=== PATIENT | female | born 1965 | race American Indian/Alaskan Native ===

== ENCOUNTER 2017-01-25 03:08 | Emergency (ER) | payer MEDICARE ==
[2017-01-25 03:10] VITALS: BMI 29.9
[2017-01-25 03:22] VITALS: TEMP 98.7; O2SAT 99
--- NOTE | 2017-01-25 03:46 | ED PDOC ---
Arrival/HPI <Paul Rizvi - Last Filed: 01/25/17 04:05> - General Historian: Patient - History of Present Illness Time/Duration: 24 hours Symptom Onset: Sudden Symptom Course: Unchanged Quality: Pressure, Cramping, Throbbing Severity Level: Moderate Context: Sitting <Claudine Giraldo - Last Filed: 01/25/17 04:34> - General Chief Complaint: Back Pain Time Seen by Provider: 01/25/17 03:34 - History of Present Illness Narrative History of Present Illness (Text): 01/25/17 03:39 51F w/PMh sig for hypertension, depression evaluated for Left gluteal pain x 1 day. Pt reports pain onset after work yesterday, pt noted inability to sit down. Pain is intermittent, sharp, non radiating, worsened by pressure/sitting/ certain movements; alleviated by keeping pressure off area. Denies trauma to area, injury to other parts of her body, N/V/F/C, shortness of breath, chest pain, ab pain, decreased ROM, other complaints. 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 PSH: Left thigh skin graft All: Seasonal SH:Denies tobacco, ETOH or illicit drug use; loads milk crates PMD: Tia (Claudine Giraldo) Modifying Factors (Text): 01/25/17 03:39 sitting/pressure = worse (Claudine Giraldo) Associated Symptoms (Text): 01/25/17 03:39 None (Claudine Giraldo) Past Medical History - Provider Review Nursing Documentation Reviewed: Yes - Cardiac Hx Cardiac Disorders: Yes Hx Heart Murmur: Yes Hx Hypertension: Yes - Pulmonary Hx Respiratory Disorders: No - Neurological Hx Neurological Disorder: No - HEENT Hx HEENT Disorder: No - Renal Hx Renal Disorder: No - Endocrine/Metabolic Hx Endocrine Disorders: No - Hematological/Oncological Hx Blood Disorders: No - Integumentary Hx Dermatological Disorder: No - Musculoskeletal/Rheumatological Hx Musculoskeletal Disorders: No - Gastrointestinal Hx Gastrointestinal Disorders: No - Genitourinary/Gynecological Hx Genitourinary Disorders: No - Psychiatric Hx Psychophysiologic Disorder: Yes Hx Anxiety: Yes Hx Depression: Yes Hx Substance Use: No - Surgical History Other/Comment: skin graft to legs - Suicidal Assessment Feels Threatened In Home Enviroment: No <Claudine Giraldo - Last Filed: 01/25/17 04:34> Family/Social History - Physician Review Nursing Documentation Reviewed: Yes Family/Social History: No Known Family HX Smoking Status: Former Smoker Hx Alcohol Use: No Hx Substance Use: No <Mark Giraldone - Last Filed: 01/25/17 04:34> Allergies/Home Meds <Belkys,Paul - Last Filed: 01/25/17 04:05> <GiraldoMarkClaudine - Last Filed: 01/25/17 04:34> Allergies/Adverse Reactions: Allergies No Known Allergies Allergy (Verified 09/02/15 11:34) Home Medications: Home Meds Medication Instructions Recorded Confirmed Cetirizine HCl [Zyrtec Allergy] 10 mg PO DAILY 01/25/17 01/25/17 FLUoxetine [Fluoxetine HCl] 20 mg PO BID 01/25/17 01/25/17 Fluticasone Propionate [Flovent 50 mcg IH PRN PRN 01/25/17 01/25/17 Diskus] Montelukast [Singulair] 10 mg PO DAILY 01/25/17 01/25/17 Multivit-Min/FA/Lycopen/Lutein 1 each PO DAILY 01/25/17 01/25/17 [Centrum Silver Tablet] amLODIPine [Norvasc] 10 mg PO DAILY 01/25/17 01/25/17 clonazePAM [clonAZEPAM] 0.5 mg PO BID 01/25/17 01/25/17 Review of Systems - Physician Review All systems were reviewed & negative as marked: Yes - Review of Systems Constitutional: Normal Eyes: Normal ENT: Normal Respiratory: Normal Cardiovascular: Normal Gastrointestinal: Normal Musculoskeletal: Other (Left gluteal pain) Skin: Normal. absent: Rash Neurological: Normal Endocrine: Normal <GiraldoClaudine - Last Filed: 01/25/17 04:34> Physical Exam Vital Signs Reviewed: Yes Temperature: Afebrile Blood Pressure: Normal Pulse: Regular Respiratory Rate: Normal Appearance: Positive for: Well-Appearing, Non-Toxic, Comfortable Pain Distress: Mild Mental Status: Positive for: Alert and Oriented X 3 - Systems Exam Head: Present: Atraumatic, Normocephalic Extroacular Muscles: Present: EOMI Conjunctiva: Present: Normal Mouth: Present: Moist Mucous Membranes Nose (External): Present: Atraumatic Neck: Present: Normal Range of Motion Respiratory/Chest: Present: Clear to Auscultation, Good Air Exchange. No: Respiratory Distress, Accessory Muscle Use Cardiovascular: Present: Regular Rate and Rhythm, Normal S1, S2. No: Murmurs Abdomen: Present: Normal Bowel Sounds. No: Tenderness, Distention, Peritoneal Signs Back: Present: Normal Inspection. No: CVA Tenderness, Midline Tenderness, Paraspinal Tenderness, Pain with Leg Raise Upper Extremity: Present: Normal Inspection. No: Cyanosis, Edema Lower Extremity: Present: Normal Inspection, Tenderness (over left mid gluteal) . No: Edema, Swelling, Deformity Neurological: Present: GCS=15, CN II-XII Intact, Speech Normal Skin: Present: Warm, Dry, Normal Color (darker color of left thigh skin graft areas, well healed). No: Rashes Psychiatric: Present: Alert, Oriented x 3, Normal Insight, Normal Concentration <Claudine Giraldo - Last Filed: 01/25/17 04:34> Vital Signs Temp Pulse Resp BP Pulse Ox 01/25/17 03:22 98.7 F 81 16 130/80 99 Medical Decision Making <Paul Rizvi - Last Filed: 01/25/17 04:05> <Claudine Giraldo - Last Filed: 01/25/17 04:34> ED Course and Treatment: 01/25/17 04:05 In agreement with resident note, which includes further HPI details. Patient was seen and evaluated with resident, came up with plan and treatment together. 51 year old female presents complaining of left gluteal pain that began yesterday. (Paul Rizvi) 01/25/17 03:47 Pt seen/evaluated. Will order pain medication and recommend conservative management of probable nerve irritation. 01/25/17 04:14 Pt currently sleeping. (Claudine Giraldo) - Medication Orders Current Medication Orders: Discontinued Medications Ibuprofen (Motrin Tab) 800 mg PO STAT STA Stop: 01/25/17 03:39 Last Admin: 01/25/17 03:59 Dose: 800 mg - PA / [employer] / Resident Statement / has reviewed & agrees with the documentation as recorded. / has examined the patient and agrees with the treatment plan. - Scribe Statement The provider has reviewed the documentation as recorded by the Scribe <Paul Rizvi - Last Filed: 01/25/17 04:05> <Claudine Giraldo - Last Filed: 01/25/17 04:34> - Scribe Statement Milly Ruby All medical record entries made by the Scribe were at my direction and personally dictated by me. I have reviewed the chart and agree that the record accurately reflects my personal performance of the history, physical exam, medical decision making, and the department course for this patient. I have also personally directed, reviewed, and agree with the discharge instructions and disposition. (Paul Rizvi) Disposition/Present on Arrival <Paul Rizvi - Last Filed: 01/25/17 04:05> - Present on Arrival Any Indicators Present on Arrival: No History of DVT/PE: No History of Uncontrolled Diabetes: No Urinary Catheter: No History of Decub. Ulcer: No History Surgical Site Infection Following: None - Disposition Have Diagnosis and Disposition been Completed?: Yes Disposition Time: 04:34 Patient Plan: Discharge <Claudine Giraldo - Last Filed: 01/25/17 04:34> - Disposition Diagnosis: Sciatica of left side Disposition: HOME/ ROUTINE Patient Problems: Current Active Problems Problem Status Onset Sciatica of left side Acute Condition: STABLE Discharge Instructions (ExitCare): Sciatica (ED), Piriformis Syndrome (ED), Back Exercises (ED) Additional Instructions: Apply ice to affected area, 15 minutes on, 30 minutes off. Ok to take Motrin or anti-inflammatory as needed for pain- please read the bottle for instructions on how to take Referrals: Concha Weber MD [Primary Care Provider] - Follow up with primary Forms: [employer] (Italian)
[2017-01-25 04:56] VITALS: BP 130/78; PULSE 80; RESP 18
== END 2017-01-25 04:50 | disposition home or self-care (01) ==
LOC: ED 03:08
DX: M54.32 Sciatica, left side (principal)

== ENCOUNTER 2017-08-09 13:54 | Emergency (ER) | payer MEDICARE ==
[2017-08-09 13:59] VITALS: BMI 30.7
[2017-08-09 14:10] VITALS: RESP 18; TEMP 98.9
--- NOTE | 2017-08-09 14:51 | ED PDOC ---
Arrival/HPI - General Chief Complaint: High Blood Pressure Time Seen by Provider: 08/09/17 14:02 Historian: Patient, Other (therapist) - History of Present Illness Narrative History of Present Illness (Text): you were treated in the ED today for blood pressure elevation and having difficulty picking up your amlodapine prescription due to cost but otherwise without any nausea/vomiting/headache/dizziness/difficulty breathing/chest pain/ abdomen pain/numbness/tingling/loss of limb function/pain with urination/ thoughts to harm yourself or others or hallucinations. Time/Duration: 1-3 hours Symptom Onset: Gradual Symptom Course: Resolved Quality: Other (no pain) Activities at Onset: Rest Context: Sitting Past Medical History - Provider Review Nursing Documentation Reviewed: Yes - Travel History Have you recently traveled outside [place] w/in the past 3 mons?: No - Cardiac Hx Cardiac Disorders: Yes Hx Heart Murmur: Yes Hx Hypertension: Yes - Pulmonary Hx Respiratory Disorders: No - Neurological Hx Neurological Disorder: No - HEENT Hx HEENT Disorder: No - Renal Hx Renal Disorder: No - Endocrine/Metabolic Hx Endocrine Disorders: No - Hematological/Oncological Hx Blood Disorders: No - Integumentary Hx Dermatological Disorder: No - Musculoskeletal/Rheumatological Hx Musculoskeletal Disorders: No - Gastrointestinal Hx Gastrointestinal Disorders: No - Genitourinary/Gynecological Hx Genitourinary Disorders: No - Psychiatric Hx Psychophysiologic Disorder: Yes Hx Anxiety: Yes Hx Depression: Yes Hx Substance Use: No - Surgical History Other/Comment: skin graft to legs - Suicidal Assessment Feels Threatened In Home Enviroment: No Family/Social History - Physician Review Nursing Documentation Reviewed: Yes Family/Social History: No Known Family HX Smoking Status: Former Smoker Hx Alcohol Use: No Hx Substance Use: No Allergies/Home Meds Allergies/Adverse Reactions: Allergies No Known Allergies Allergy (Verified 08/09/17 14:08) Home Medications: Home Meds Medication Instructions Recorded Confirmed Cetirizine HCl [Zyrtec Allergy] 10 mg PO DAILY 01/25/17 08/09/17 FLUoxetine [Fluoxetine HCl] 20 mg PO BID 01/25/17 08/09/17 Fluticasone Propionate [Flovent 50 mcg IH PRN PRN 01/25/17 08/09/17 Diskus] Montelukast [Singulair] 10 mg PO DAILY 01/25/17 08/09/17 Multivit-Min/FA/Lycopen/Lutein 1 each PO DAILY 01/25/17 08/09/17 [Centrum Silver Tablet] amLODIPine [Norvasc] 10 mg PO DAILY 01/25/17 08/09/17 clonazePAM [clonAZEPAM] 0.5 mg PO BID 01/25/17 08/09/17 Review of Systems - Review of Systems Constitutional: Normal Eyes: Normal ENT: Normal Respiratory: Normal Cardiovascular: Normal Gastrointestinal: Normal Genitourinary Female: Normal Musculoskeletal: Normal Skin: Normal Neurological: Normal Endocrine: Normal Hemo/Lymphatic: Normal Psychiatric: Normal Physical Exam Vital Signs Reviewed: Yes Vital Signs Temp Pulse Resp BP Pulse Ox 08/09/17 13:59 98.9 F 89 18 136/98 H 97 Temperature: Afebrile Blood Pressure: Hypertensive Pulse: Regular Respiratory Rate: Normal Appearance: Positive for: Well-Appearing, Non-Toxic, Comfortable Pain Distress: None Mental Status: Positive for: Alert and Oriented X 3 - Systems Exam Head: Present: Atraumatic, Normocephalic Pupils: Present: PERRL Extroacular Muscles: Present: EOMI Conjunctiva: Present: Normal Ears: Present: Normal Mouth: Present: Moist Mucous Membranes Pharnyx: Present: Normal Nose (External): Present: Atraumatic Nose (Internal): Present: Normal Inspection Neck: Present: Normal Range of Motion Respiratory/Chest: Present: Clear to Auscultation, Good Air Exchange Cardiovascular: Present: Regular Rate and Rhythm Abdomen: No: Tenderness, Distention, Normal Bowel Sounds, Peritoneal Signs, Rebound, Guarding, McBurney's Point Tender, Rovsing's Sign Present, Hernias, Feeding Tubes, Ostomy Tubes, Mass/Organomegaly, Scars, Other Back: Present: Normal Inspection Upper Extremity: Present: Normal Inspection Lower Extremity: Present: Normal Inspection Neurological: Present: GCS=15, CN II-XII Intact, Speech Normal, Motor Func Grossly Intact Skin: Present: Warm, Normal Color Psychiatric: Present: Alert, Oriented x 3, Normal Insight, Normal Concentration Medical Decision Making ED Course and Treatment: ou were treated in the ED today for blood pressure elevation and having difficulty picking up your amlodapine prescription due to cost but otherwise without any nausea/vomiting/headache/dizziness/difficulty breathing/chest pain/ abdomen pain/numbness/tingling/loss of limb function/pain with urination/ thoughts to harm yourself or others or hallucinations. You were otherwise breathing easily, pink moist lips, smiling talking easily with your therapist Walt, good strength/sensation, alert/oriented, walking easily, clear lungs, no abdomen tenderness, no fever temp 98.9, stable heart rate 89, stable breathing rate 18, excellent oxygen level 97% room air, elevated blood pressure 136/98_ which we recommend repeat in 2-3 days primary care office to determine further treatment, your listed dose of amlodapine 10mg given today, observation done in the ED with improvement, counselled to monitor your sympotms and thus discharged home with your therapist Walt who feels your safe. 1. Recommend amlodapine 10mg tomorrow morning. 2. Recommend follow-up primary care Dr. Weber 1-2 days to review symptoms, review blood pressure medications, referral to your therapist as instructed by Walt who is with you. 3. If any worsening pain, fever, chills, nausea, vomiting, difficulty breathing, numbness, loss of limb function, pain with urination or any medical condition then return to the ED. 08/09/17 14:52 Reassessment Condition: Re-examined, Improved - Medication Orders Current Medication Orders: Discontinued Medications Amlodipine Besylate (Norvasc) 10 mg PO STAT STA Stop: 08/09/17 14:47 Amlodipine Besylate (Norvasc) 10 mg PO STAT STA Stop: 08/09/17 14:47 Disposition/Present on Arrival - Present on Arrival Any Indicators Present on Arrival: No History of DVT/PE: No History of Uncontrolled Diabetes: No Urinary Catheter: No History of Decub. Ulcer: No History Surgical Site Infection Following: None - Disposition Have Diagnosis and Disposition been Completed?: Yes Diagnosis: Hypertension Disposition: HOME/ ROUTINE Disposition Time: 14:52 Patient Plan: Discharge Patient Problems: Current Active Problems Problem Status Onset Hypertension Acute Condition: IMPROVED Discharge Instructions (ExitCare): High Blood Pressure (DC) Additional Instructions: ou were treated in the ED today for blood pressure elevation and having difficulty picking up your amlodapine prescription due to cost but otherwise without any nausea/vomiting/headache/dizziness/difficulty breathing/chest pain/ abdomen pain/numbness/tingling/loss of limb function/pain with urination/ thoughts to harm yourself or others or hallucinations. You were otherwise breathing easily, pink moist lips, smiling talking easily with your therapist Walt, good strength/sensation, alert/oriented, walking easily, clear lungs, no abdomen tenderness, no fever temp 98.9, stable heart rate 89, stable breathing rate 18, excellent oxygen level 97% room air, elevated blood pressure 136/98_ which we recommend repeat in 2-3 days primary care office to determine further treatment, your listed dose of amlodapine 10mg given today, observation done in the ED with improvement, counselled to monitor your sympotms and thus discharged home with your therapist Walt who feels your safe. 1. Recommend amlodapine 10mg tomorrow morning. 2. Recommend follow-up primary care Dr. Weber 1-2 days to review symptoms, review blood pressure medications, referral to your therapist as instructed by Walt who is with you. 3. If any worsening pain, fever, chills, nausea, vomiting, difficulty breathing, numbness, loss of limb function, pain with urination or any medical condition then return to the ED. Forms: [employer] (Kyrgyz)
[2017-08-09 15:20] VITALS: BP 132/88; PULSE 82; O2SAT 98
== END 2017-08-09 15:36 | disposition home or self-care (01) ==
LOC: ED 13:54
DX: I10 Essential (primary) hypertension (principal); Z87.891 Personal history of nicotine dependence

== ENCOUNTER 2017-12-20 14:12 | Emergency (ER) | payer MEDICAID, MEDICARE ==
[2017-12-20 14:13] VITALS: BMI 30.7
[2017-12-20] MEDS ORDERED: TDAP Vaccine 0.5 mL Syr IM ONE (14:38)
[2017-12-20 14:40] VITALS: TEMP 98.3
--- NOTE | 2017-12-20 14:45 | ED PDOC ---
Arrival/HPI - General Chief Complaint: Finger,Hand,&Wrist Time Seen by Provider: 12/20/17 14:24 Historian: Patient - History of Present Illness Narrative History of Present Illness (Text): 12/20/17 14:40 52yo female with past medical history of hypertension and anxiety who presdnt with complaint of right thumb pain/laceration s/p trauma. States she accidentally slammed her right thumb on a door. She is not up to date with her TD booster. denies any other complaint. Past Medical History - Provider Review Nursing Documentation Reviewed: Yes - Cardiac Hx Cardiac Disorders: Yes Hx Heart Murmur: Yes Hx Hypertension: Yes - Pulmonary Hx Respiratory Disorders: No - Neurological Hx Neurological Disorder: No - HEENT Hx HEENT Disorder: No - Renal Hx Renal Disorder: No - Endocrine/Metabolic Hx Endocrine Disorders: No - Hematological/Oncological Hx Blood Disorders: No - Integumentary Hx Dermatological Disorder: No - Musculoskeletal/Rheumatological Hx Musculoskeletal Disorders: No - Gastrointestinal Hx Gastrointestinal Disorders: No - Genitourinary/Gynecological Hx Genitourinary Disorders: No - Psychiatric Hx Psychophysiologic Disorder: Yes Hx Anxiety: Yes Hx Depression: Yes Hx Substance Use: No - Surgical History Other/Comment: skin graft to legs - Suicidal Assessment Feels Threatened In Home Enviroment: No Family/Social History - Physician Review Nursing Documentation Reviewed: Yes Family/Social History: Unknown Family HX Smoking Status: Former Smoker Hx Alcohol Use: No Hx Substance Use: No Allergies/Home Meds Allergies/Adverse Reactions: Allergies No Known Allergies Allergy (Verified 12/20/17 14:25) Home Medications: Home Meds Medication Instructions Recorded Confirmed Cetirizine HCl [Zyrtec Allergy] 10 mg PO DAILY 01/25/17 12/20/17 FLUoxetine [Fluoxetine HCl] 20 mg PO BID 01/25/17 12/20/17 Fluticasone Propionate [Flovent 50 mcg IH PRN PRN 01/25/17 12/20/17 Diskus] Montelukast [Singulair] 10 mg PO DAILY 01/25/17 12/20/17 Multivit-Min/FA/Lycopen/Lutein 1 each PO DAILY 01/25/17 12/20/17 [Centrum Silver Tablet] amLODIPine [Norvasc] 10 mg PO DAILY 01/25/17 12/20/17 clonazePAM [clonAZEPAM] 0.5 mg PO BID 10/07/17 09/01/18 Review of Systems - Physician Review All systems were reviewed & negative as marked: Yes - Review of Systems Constitutional: Normal Eyes: Normal ENT: Normal Respiratory: Normal Cardiovascular: Normal Gastrointestinal: Normal Genitourinary Female: Normal Musculoskeletal: Normal Skin: Laceration (Right thumb) Neurological: Normal Endocrine: Normal Hemo/Lymphatic: Normal Psychiatric: Normal Physical Exam Vital Signs Reviewed: Yes Vital Signs Temp Pulse Resp BP Pulse Ox 12/20/17 14:13 98.3 F 80 20 144/94 H 18 L Temperature: Afebrile Blood Pressure: Normal Pulse: Regular Respiratory Rate: Normal Appearance: Positive for: Well-Appearing, Non-Toxic, Comfortable Pain Distress: None Mental Status: Positive for: Alert and Oriented X 3 - Systems Exam Head: Present: Atraumatic, Normocephalic Pupils: Present: PERRL Extroacular Muscles: Present: EOMI Conjunctiva: Present: Normal Mouth: Present: Moist Mucous Membranes Neck: Present: Normal Range of Motion Respiratory/Chest: Present: Clear to Auscultation, Good Air Exchange. No: Respiratory Distress, Accessory Muscle Use Cardiovascular: Present: Regular Rate and Rhythm, Normal S1, S2. No: Murmurs Abdomen: No: Tenderness, Distention, Peritoneal Signs Back: Present: Normal Inspection Upper Extremity: Present: Normal Inspection. No: Cyanosis, Edema Lower Extremity: Present: Normal Inspection. No: Edema Neurological: Present: GCS=15, CN II-XII Intact, Speech Normal Skin: Present: Warm, Dry, Normal Color, Laceration (3.0cm linear laceration on chowdhury right thumb tuft). No: Rashes Psychiatric: Present: Alert, Oriented x 3, Normal Insight, Normal Concentration Medical Decision Making ED Course and Treatment: 12/20/17 16:05 Right hand xray - No acute fracture Laceration irrigated with betadine and NS. PT declined suture, so edges was approximated with dermabond and steri strip. Dressed. Pt placed on prophylactic abx. Advised to keep wound clean and dry Referred to her [facility]D [facility] emergency department for any new or worsening symptoms. - RAD Interpretation Radiology Orders: 12/20/17 14:38 HAND RIGHT THUMB [RAD] Stat - Medication Orders Current Medication Orders: Discontinued Medications Cephalexin Monohydrate (Keflex) 500 mg PO STAT STA PRN Reason: Protocol Stop: 12/20/17 14:40 Last Admin: 12/20/17 14:58 Dose: 500 mg Tetanus/Reduced Diphtheria/Acell Pertussis (Boostrix Vaccine Inj) 0.5 ml IM .ONCE ONE Stop: 12/20/17 14:39 Last Admin: 12/20/17 14:58 Dose: 0.5 ml Immunization Registry Document 12/20/17 14:58 EWO (Rec[facility] 12[facility]20/17 14:58 [id number] Immunization Registry Consent Date 12/20/17 Tramadol HCl (Ultram) 50 mg PO STAT STA Stop: 12/20/17 14:39 Last Admin: 12/20/17 14:57 Dose: 50 mg MAR Pain Assessment Document 12/20/17 14:57 EWO (Rec: 12/20/17 14:58 [id number] Pain Reassessment Is this a pain reassessment? No Sleep Is patient sleeping during reassessment? No Presence of Pain Presence of Pain Yes Pain Scale Used Pain Scale Used Numeric Disposition/Present on Arrival - Present on Arrival Any Indicators Present on Arrival: No History of DVT/PE: No History of Uncontrolled Diabetes: No Urinary Catheter: No History of Decub. Ulcer: No History Surgical Site Infection Following: None - Disposition Have Diagnosis and Disposition been Completed?: Yes Diagnosis: Laceration Disposition Time: 15:40 Patient Plan: Admission Patient Problems: Current Active Problems Problem Status Onset Laceration Acute Condition: STABLE Discharge Instructions (ExitCare): Laceration Repair Additional Instructions: Keep wound clean and dry Follow up with your Doctor Return to emergency department for any fever, purulent discharge, redness Prescriptions: Cephalexin [Keflex] 500 mg PO TID #21 capsule Referrals: Leyla Bah MD [Medical Doctor] - Follow up with primary Forms: [email or web address] (Turkish)
--- NOTE | 2017-12-20 15:28 | RAD ---
Date of service: 12/20/2017 PROCEDURE: Right Thumb radiographs. HISTORY: thumb pain s/p trauma COMPARISON: None available. TECHNIQUE: AP radiograph of the right hand, as well as spot oblique and lateral images of thumb were obtained. FINDINGS: RIGHT THUMB: Fall right 1st digit without acute displaced fracture identified. Remainder of the right hand (as seen on the AP view) grossly unremarkable. JOINTS: No dislocation. SOFT TISSUES: Unremarkable. No evidence of radiopaque foreign body. OTHER FINDINGS: None. IMPRESSION: No acute displaced fracture identified.
[2017-12-20 16:10] VITALS: BP 145/87; PULSE 78; RESP 18; O2SAT 98
== END 2017-12-20 16:11 | disposition home or self-care (01) ==
LOC: ED 14:12
DX: S61.011A Laceration without foreign body of right thumb without damage to nail, initial encounter (principal); W23.0XXA Caught, crushed, jammed, or pinched between moving objects, initial encounter; I10 Essential (primary) hypertension; Z87.891 Personal history of nicotine dependence; Z23 Encounter for immunization

== ENCOUNTER 2018-06-05 14:13 | Outpatient (CLI) | payer MEDICARE | END 2018-06-05 14:14 | disposition home or self-care (01) | LOC: RAD 14:13 | DX: Z12.31 Encounter for screening mammogram for malignant neoplasm of breast (principal) ==

== ENCOUNTER 2018-08-27 14:54 | Emergency (ER) | payer MEDICARE ==
[2018-08-27 15:04] VITALS: BMI 29.8
[2018-08-27 15:22] VITALS: RESP 18; TEMP 97.9
--- NOTE | 2018-08-27 15:35 | ED PDOC ---
Arrival/HPI - General Chief Complaint: Lower Extremity Problem/Injury Time Seen by Provider: 08/27/18 15:02 Historian: Patient - History of Present Illness Narrative History of Present Illness (Text): 52 y/o female with PMH of HTN presents to the ED c/o left heel pain x 3 days. Pain is sharp, made worse with walking and bearing weight, that occasionally radiates up into her calf. Took 800mg ibuprofen this morning at 8am with mild relief. Pt experienced similar pain a few months ago that resolved on its own. Pt never followed up with podiatry or orthopedics. Denies trauma/injury, open wounds, numbness, weakness, paresthesias, fever, chills, skin redness/warmth, or any other associated symptoms. Past Medical History - Cardiac Hx Cardiac Disorders: Yes Hx Heart Murmur: Yes Hx Hypertension: Yes - Pulmonary Hx Respiratory Disorders: No - Neurological Hx Neurological Disorder: No - HEENT Hx HEENT Disorder: No - Renal Hx Renal Disorder: No - Endocrine/Metabolic Hx Endocrine Disorders: No - Hematological/Oncological Hx Blood Disorders: No - Integumentary Hx Dermatological Disorder: No - Musculoskeletal/Rheumatological Hx Musculoskeletal Disorders: No - Gastrointestinal Hx Gastrointestinal Disorders: No - Genitourinary/Gynecological Hx Genitourinary Disorders: No - Psychiatric Hx Psychophysiologic Disorder: Yes Hx Anxiety: Yes Hx Depression: Yes Hx Substance Use: No - Surgical History Other/Comment: skin graft to legs - Suicidal Assessment Feels Threatened In Home Enviroment: No Family/Social History - Physician Review Nursing Documentation Reviewed: Yes Family/Social History: No Known Family HX Smoking Status: Former Smoker Hx Alcohol Use: No Hx Substance Use: No Allergies/Home Meds Allergies/Adverse Reactions: Allergies No Known Allergies Allergy (Verified 12/27/17 08:00) Home Medications: Home Meds Medication Instructions Recorded Confirmed Cetirizine HCl [Zyrtec Allergy] 10 mg PO DAILY 01/25/17 12/27/17 FLUoxetine [Fluoxetine HCl] 20 mg PO BID 01/25/17 12/27/17 Fluticasone Propionate [Flovent 50 mcg IH PRN PRN 01/25/17 12/27/17 Diskus] Montelukast [Singulair] 10 mg PO DAILY 01/25/17 12/27/17 Multivit-Min/FA/Lycopen/Lutein 1 each PO DAILY 01/25/17 12/27/17 [Centrum Silver Tablet] amLODIPine [Norvasc] 10 mg PO DAILY 01/25/17 12/27/17 clonazePAM [clonAZEPAM] 0.5 mg PO BID 01/25/17 12/27/17 Physical Exam Vital Signs Reviewed: Yes Vital Signs Temp Pulse Resp BP Pulse Ox 08/27/18 15:28 150/93 H 08/27/18 15:05 97.9 F 75 18 163/109 H 99 Temperature: Afebrile Blood Pressure: Hypertensive Pulse: Regular Respiratory Rate: Normal Appearance: Positive for: Well-Appearing, Non-Toxic, Comfortable Pain Distress: None Mental Status: Positive for: Alert and Oriented X 3 - Systems Exam Head: Present: Atraumatic, Normocephalic Pupils: Present: PERRL Extroacular Muscles: Present: EOMI Conjunctiva: Present: Normal Mouth: Present: Moist Mucous Membranes Neck: Present: Normal Range of Motion. No: Meningeal Signs, MIDLINE TENDERNESS, Paraspinal Tenderness Respiratory/Chest: Present: Clear to Auscultation, Good Air Exchange. No: Respiratory Distress, Accessory Muscle Use Cardiovascular: Present: Regular Rate and Rhythm, Normal S1, S2, Peripheal Pulses Present Back: Present: Normal Inspection Upper Extremity: Present: Normal Inspection, Normal ROM Lower Extremity: Present: Normal Inspection, NORMAL PULSES, Normal ROM, Tenderness (plantar surface of left foot, generalized), Neurovascularly Intact, Capillary Refill < 2 s. No: Edema, CALF TENDERNESS, Swelling, Deformity, Temp erature Abnormalties Neurological: Present: GCS=15, CN II-XII Intact, Speech Normal Skin: Present: Warm, Dry, Normal Color. No: Rashes Psychiatric: Present: Alert, Oriented x 3, Normal Insight, Normal Concentration, Normal Affect, Normal Mood Medical Decision Making ED Course and Treatment: Initial Plan: * Left Foot XR * Left leg venous duplex * Toradol 15:35 Repeat BP improved. Pt states she did not take her BP medication today. Pt is aymptomatic from her HTN. No headache, neck pain, back pain, chest pain, SOB, vision changes, dizziness, nausea, vomiting, abdominal pain, or any other associated symptoms. Left foot XR negative for fracture or dislocation but shows heel spur. Venous duplex prelim read negative for DVT Advised podiatry and PMD followup. Diagnostic testing results and plan of care discussed with patient. Strict instructions given regarding prescription use, importance of followup, and signs/symptoms to return to ER including numbness, paresthesias, weakness, skin redness, fever, or any other new/worsening symptoms. Pt verbalized understanding of discussion. Patient is A&Ox3, ambulating with steady gait, with vital signs stable for discharge. Disposition/Present on Arrival - Present on Arrival Any Indicators Present on Arrival: No History of DVT/PE: No History of Uncontrolled Diabetes: No Urinary Catheter: No History of Decub. Ulcer: No History Surgical Site Infection Following: None - Disposition Have Diagnosis and Disposition been Completed?: Yes Diagnosis: Heel spur, Foot pain, left Disposition: HOME/ ROUTINE Disposition Time: 17:20 Patient Plan: Discharge Condition: GOOD Discharge Instructions (ExitCare): Heel Pain (Caused by Plantar Fasciitis), Heel Spurs (DC) Additional Instructions: Ibuprofen as needed for pain every 8 hours, take with food Weight bear as tolerated Followup with podiatry within 2 days Return to ER with any new/worsening symptoms Prescriptions: Ibuprofen [Motrin Tab] 600 mg PO Q8 PRN #30 tab PRN Reason: Pain, Moderate (4-7) Referrals: Podiatry Clinic [Outside] - Follow up with primary Leyla Bah MD [Medical Doctor] - Follow up with primary [facility] [place] [Outside] - Follow up with primary Forms: [facility] ([place]), WORK NOTE
--- NOTE | 2018-08-27 16:25 | RAD ---
Date of service: 08/27/2018 PROCEDURE: Left Foot Radiographs. HISTORY: left atraumatic plantar foot pain COMPARISON: None. TECHNIQUE: 3 views obtained. FINDINGS: BONES: Normal. No fracture. JOINTS: Normal. SOFT TISSUES: Normal. OTHER FINDINGS: None. IMPRESSION: Normal left foot radiographs.
[2018-08-27 21:09] VITALS: BP 130/85; PULSE 85; O2SAT 100
--- NOTE | 2018-08-29 13:34 | US ---
PROCEDURE: Left lower extremity venous US HISTORY: Leg pain and swelling. Evaluate for DVT. PHYSICIAN(S): Chon Rodríguez MD. TECHNIQUE: Duplex sonography and color-flow Doppler with graded compression were used to evaluate the deep venous system of the left lower extremity. FINDINGS: The visualized deep venous system of the left lower extremity is sonographically normal and compressible. Normal wave forms and augmentation are seen. There is no sonographic evidence for deep venous thrombosis in the visualized segments of the left lower extremity. IMPRESSION: 1. No sonographic evidence for deep venous thrombosis in the visualized segments of the left lower extremity.
== END 2018-08-27 21:08 | disposition home or self-care (01) ==
LOC: ED 14:54
DX: M77.32 Calcaneal spur, left foot (principal); M79.672 Pain in left foot; I10 Essential (primary) hypertension; Z87.891 Personal history of nicotine dependence
CPT/HCPCS: 73630; 81025; 93971; 96372; 99284; J1885